=== PATIENT | female | born 1960 | race Caucasian/White ===

== ENCOUNTER 2021-03-31 12:20 | Inpatient (IN) | payer MEDICARE, MEDICAID, SELFPAY ==
[2021-03-31] VITALS (11 sets, daily range): BP systolic 104–202; BP diastolic 73–113; PULSE 46–110; RESP 12–18; TEMP 36.7–36.9; O2SAT 96–100; BMI 43.9; BMI 42.4
--- NOTE | 2021-03-31 12:21 | EKG12_ITS ---
Test Reason : STROKE TEAM Blood Pressure : / mmHG Vent. Rate : 047 BPM Atrial Rate : 047 BPM P-R Int : 168 ms QRS Dur : 092 ms QT Int : 494 ms P-R-T Axes : 028 -15 013 degrees QTc Int : 437 ms Sinus bradycardia Voltage criteria for left ventricular hypertrophy Abnormal ECG Confirmed by KRISTOPHER GRAHAM, VALENTINA ([id number]), editor department YANA ESTRELLA ([id number]) on 04/03/2021 9:27:55 AM Referred By: JACOB Confirmed By:VALENTINA SUMMERS MD
--- NOTE | 2021-03-31 12:21 | CT_ITS ---
STUDY: CT HEAD STROKE PROTOCOL W/O CONTRAST INJECTION REASON FOR EXAM: Female, 60 years old. Neuro deficit, acute, stroke suspected RADIATION DOSAGE (If Supplied By Facility): CTDIvol = ( ) mGy, DLP = ( ) mGycm TECHNIQUE: Transaxial CT imaging of the brain was performed without administration of intravenous contrast material. Individualized dose optimization techniques were used for this CT. COMPARISON: No relevant priors. FINDINGS: Normal soft tissue structures. Normal calvarium. Normal size ventricles and extra-axial spaces for the patient''s age. Normal white matter tracts of the cerebral hemispheres. Normal basal ganglia and thalami. Normal brainstem. Normal cerebellum. There is no intracranial hemorrhage. There are no findings of an acute ischemic infarction. Normal visualized paranasal sinuses. ASPECT score: CT/STROKE Brain/Head without Cont IMPRESSION: Normal unenhanced CT scan of the brain. N.B. : The above information has been verbally conveyed by Eusebio Vasquez MD to MD evans, on 03/31/2021 12:37:32 (ET). Electronically Signed: Eusebio Vasquez MD at 12:36 EDT Tel , Service support ,
--- NOTE | 2021-03-31 12:22 | CT_ITS ---
STUDY: CTA HEAD AND NECK WITH CONTRAST REASON FOR EXAM: Female, 60 years old. Neuro deficit, acute, stroke suspected RADIATION DOSAGE (If Supplied By Facility): CTDIvol = ( 19.76 ) mGy, DLP = ( 617.89 ) mGycm TECHNIQUE: CT angiography was performed with a multi-detector CT scanner. Data acquisition was obtained from the skull base through the vertex following intravenous administration of IV 100mL Isovue-370. MIP images were reconstructed from the axial data set. Post-processing of the angiographic images was performed, with multiplanar reformation and 3D reconstruction. Individualized dose optimization techniques were used for this CT. COMPARISON: No relevant priors. FINDINGS: Normal bilateral petrous carotid arteries. There is calcified plaque formation of the right cavernous carotid artery, without a cross-sectional luminal stenosis. There is calcified plaque formation of the left cavernous carotid artery, without a cross-sectional luminal stenosis. Normal right A1 segments of the anterior cerebral artery. Normal left A1 segments of the anterior cerebral artery. Normal intact anterior communicating artery (ACOM). Normal bilateral A2 segments of the anterior cerebral arteries. Normal right M1 and M2 segments of the middle cerebral arteries, with a normal M1 bifurcation. Normal left M1 and M2 segments of the middle cerebral arteries, with a normal M1 bifurcation. Normal right posterior communicating artery (PCOM). Normal left posterior communicating artery (PCOM). Normal bilateral vertebral arteries. Normal basilar artery with a normal basilar bifurcation. The visualized bilateral superior cerebellar (SCA) arteries are normal. Normal bilateral P1, P2 and visualized P3 segments of the posterior cerebral arteries. There is no demonstrated aneurysm of the [place]. There is no demonstrated abnormality of the visualized brain. AORTIC ARCH: Normal visualized aortic arch. Normal origins of the brachiocephalic, left common carotid, and left subclavian arteries. RIGHT CAROTID ARTERIES: Normal right common carotid artery (CCA). There is mild atherosclerotic plaque formation with minimal narrowing of the right carotid bulb. Normal origin of the right internal carotid (ICA) artery without a hemodynamically significant stenosis. Normal visualized cervical portion of the right internal carotid artery. Normal origin of the right external carotid artery (ECA). LEFT CAROTID ARTERIES: Normal left common carotid artery (CCA). Normal left common carotid bulb. Normal origin of the left internal carotid (ICA) artery without a hemodynamically significant stenosis. Normal visualized cervical portion of the left internal carotid artery. Normal origin of the left external carotid artery (ECA). VERTEBRAL ARTERIES: Normal bilateral vertebral arteries. CT/STROKE CTA Head AND Neck W/Con IMPRESSION: Normal CTA Head and neck with contrast. N.B. : The above information has been verbally conveyed by Eusebio Vasquez MD to Lamont Batista MD, , on 03/31/2021 14:24:45 (ET). Electronically Signed: Eusebio Vasquez MD at 13:13 EDT Tel , Service support ,
--- NOTE | 2021-03-31 12:28 | EX.ED.DYSGE1 ---
HPI History of Present Illness Chief Complaint: Neuro S/Sx Informant: patient Onset/Context/Timing Onset: Today Context: Gradual Onset Timing: Continuous Current Severity: Moderate Maximum Severity: Moderate Narrative Narrative: The patient is a 60-year-old female medical history significant for hypertension and fibromyalgia who presents to the emergency department with strokelike symptoms. Patient states that about 11 AM today, she began to have tingling in her right arm. She states that she would try to move it, I would feel clumsy. She states the tingling also went to her face and leg. She states she is never had a thing like this before. So involving the right side of the body. She denies headache. She denies visual change. She denies any trouble speaking or swallowing. She has no history of coronary vascular disease. She has no history of stroke or TIA. Prior similar symptoms: No Recent Illness/Hospitalization: No [facility] Medical History (Updated 03/31/21 @ 12:42 by Chacho Casper) Hypertension Home Medications gabapentin 1,200 mg QHS 03/31/21 [History Last Taken Unknown] hydrochlorothiazide 12.5 mg DAILY 03/31/21 [History Last Taken Unknown] ibuprofen [IBU] 800 mg BID 03/31/21 [History Last Taken Unknown] levothyroxine 50 mcg DAILY 03/31/21 [History Last Taken Unknown] tramadol 50 mg QHS 03/31/21 [History Last Taken Unknown] Allergy/AdvReac Type Severity Reaction Status Date / Time meperidine [From Demerol] Allergy PT UNSURE Verified 03/31/21 12:36 OF REACTION Social History Smoking Status: Never smoker ROS ROS ED Constitutional Constitutional ED: Denies chills or fever(s) Eyes Eyes: Denies blurry vision or change in vision ENT ENT ED: Denies ear pain or sore throat Cardiovascular Cardiovascular: Denies chest pain or palpitations Respiratory/Chest Respiratory/Chest: Denies cough, dyspnea or dyspnea on exertion Gastrointestinal Gastrointestinal: Denies abdominal pain, nausea or vomiting Genitourinary Genitourinary ED: Denies dysuria or urinary frequency Musculoskeletal Musculoskeletal: Denies arthralgias or myalgias Integumentary Denies rash Neurologic Neurologic: Reports paresthesias and weakness; Denies headache(s) Psychiatric Psychiatric: Denies anxiety or depression Endocrine Endocrinology: Denies polydipsia or polyuria Allergic/Immunologic Allergic/Immunologic ED: Denies urticaria EXAM Physical Exam Const Vital Signs: 03/31/21 12:21 03/31/21 12:27 03/31/21 12:51 Temperature 98.2 F Temperature Source Temporal Pulse Rate 51 L 57 L Respiratory Rate 16 14 Blood Pressure 165/92 H Blood Pressure Mean 116 Pulse Ox 96 98 Oxygen Delivery Method Room Air Room Air Room Air Positive well nourished and well developed General Appearance ED: well developed HEENT Reports normocephalic, head/scalp atraumatic and moist mucous membranes Eyes PERRL and EOMs intact bilaterally Neck no lymphadenopathy and supple General: Negative for tenderness Chest Wall inspection of chest normal Resp normal respiratory effort and clear to auscultation bilaterally Cardio regular rate, regular rhythm and no murmurs GI normal to inspection, nondistended, normoactive bowel sounds Palpation: Negative for tender, guarding or rebound tenderness present Back/Spine no CVA tenderness Cervical Spine: Negative for cervical spine tenderness Thoracic Spine / Upper Back: Negative for thoracic spinal tenderness Extremity normal to inspection General Extremety ED: Negative for tenderness Neuro oriented x3 and CN's II-XII intact bilaterally Neuro Narrative: Patient does have very slight weakness of the right arm against gravity. She can hold, but the arm does wobble. She also has some mild weakness of the right leg against gravity. There is sensation difference between the right and left side, but no inattention. Her NIH is 3. Sensorium / Orientation: alert Psych mental status grossly normal Skin no rashes or lesions noted, no wounds and skin turgor normal MDM MDM MDM Narrative Medical decision making narrative: The patient initially had an NIH of 3, but her symptoms are rapidly improving. Her repeat NIH is only 1 for the sensory change. The patient was seen in conjunction with [facility] neurology. Noncontrast head CT was negative. I did not recommend TPA and I do agree with this. However, given the patient's focal symptoms I do feel that she would benefit from a TIA work-up. Patient was discussed with the hospitalist and will be admitted. Impression 1. Right-sided paresthesias Lab Data Attestation: I reviewed the patient's lab results. Labs: Laboratory Results - last 24 hr 03/31/21 03/31/21 03/31/21 12:30 12:30 12:30 WBC 7.6 RBC 4.85 Hgb 15.0 Hct 45.3 MCV 93.4 MCH 30.9 MCHC 33.1 RDW Std Deviation 44.5 H RDW Coeff of Judi 13.0 Plt Count 186 MPV 11.3 Immature Gran % (Auto) 0.300 Neut % (Auto) 58.8 Lymph % (Auto) 27.7 [place] % (Auto) 9.5 Eos % (Auto) 3.2 Baso % (Auto) 0.5 Absolute Neuts (auto) 4.5 Absolute Lymphs (auto) 2.11 Nucleated RBC % 0 PT 12.7 INR 1.0 APTT 25.6 Sodium 142 Potassium 3.8 Chloride 104 Carbon Dioxide 32.0 Anion Gap 6 BUN 13 Creatinine 0.91 Estim Creat Clear Calc 58.42 Est GFR (MDRD) Af Amer 81 Est GFR (MDRD) Non-Af 67 BUN/Creatinine Ratio 14.3 Glucose 91 Calcium 8.8 Troponin I < 0.015 Discharge Plan Triage Chief Complaint: Neuro S/Sx ED Provider: Lamont Batista Dx/Rx/DC Orders Prescriptions: No Action ibuprofen [IBU] 800 mg tablet 800 mg BID RF: 0 tramadol 50 mg Tablet 50 mg QHS RF: 0 levothyroxine 50 mcg tablet 50 mcg DAILY RF: 0 hydrochlorothiazide 12.5 mg capsule 12.5 mg DAILY RF: 0 gabapentin 300 mg capsule 1,200 mg QHS RF: 0 Primary Care Provider: NOT,DEFINED
[2021-03-31 12:37] LABS: Absolute Lymphocyte Count 2.11 X10^3/uL (0.83-4.51); Absolute Neutrophil Count 4.5 X10^3/uL (2.0-7.7); Basophil# 0.04 X10^3/uL; Basophil% 0.5 % (0-1); Eosinophil# 0.24 X10^3/uL; Eosinophils% 3.2 % (0-5); Hematocrit 45.3 % (37-47); Lymphocyte # 2.11 X10^3/ul (0.83-4.51); Lymphocyte % 27.7 % (19-41); Mean Corp Hgb Conc 33.1 g/dL (32-36); Mean Corpuscular Hgb 30.9 pg (27.0-32.0); Mean Corpuscular Volume 93.4 fL (81-99); Mean Platelet Vol. 11.3 fl (6.2-12.0); Monocyte# 0.72 X10^3/uL; Monocyte% 9.5 % (0-10); NRBC Flagged by Analyzer 0 % (0-5); Neutrophil # 4.48 X10^3/uL (2.7-7.7); Neutrophil % 58.8 % (47-70); Platelet Count 186 K/mm3 (150-450); RBC Distribution Width SD 44.5 fl (35.1-43.9); Red Blood Count 4.85 M/mm3 (4.2-5.4); White Blood Count 7.6 K/mm3 (4.4-11.0)
[2021-03-31 12:45] LABS: Prothrombin Time (Protime)PT. 12.7 SECONDS (11.7-14.9)
[2021-03-31 12:46] LABS: Partial Thromboplast Time 25.6 Seconds (24.1-36.2)
[2021-03-31 12:55] LABS: Anion Gap 6 (5-15); BUN 13 mg/dL (7-18); BUN/Creat Ratio 14.3 RATIO (10-20); Calcium,Total 8.8 mg/dL (8.5-10.1); Chloride 104 mmol/L (98-107); Creatinine, Serum 0.91 mg/dL (0.55-1.02); EST Glomerular Filtration Rate 67 mL/min (>60); Est Glom Filt Rate - Afr Amer 81 mL/min (>60); Estimated Creatinine Clearance 58.42 ml/min; Glucose 91 mg/dL (74-106); Potassium 3.8 mmol/L (3.5-5.1); Sodium Level 142 mmol/L (136-145)
--- NOTE | 2021-03-31 13:04 | RAD_ITS ---
STUDY: X-RAY CHEST REASON FOR EXAM: Female, 60 years old. Neuro deficit, acute, stroke suspected TECHNIQUE: Single AP portable view of the chest. COMPARISON: None. FINDINGS: The lungs are clear and expanded. There is no demonstrated pleural abnormality. Normal size heart. Normal mediastinum and vinod. Normal visualized pulmonary arteries. Normal visualized aortic arch and descending thoracic aorta. Normal visualized thoracic spine. Normal visualized ribs, clavicles, and shoulders. There is no demonstrated abnormality of the visualized soft tissue structures of the upper abdomen. RAD/Chest 1 View IMPRESSION: Normal x-ray examination of the chest. Electronically Signed: Eusebio Vasquez MD at 13:14 EDT Tel , Service support ,
--- NOTE | 2021-03-31 13:05 | ED.RN ---
Dr Batista states to discontinue NIH
--- NOTE | 2021-03-31 13:07 | NURSING ---
NO OLD EKGS
--- NOTE | 2021-03-31 13:09 | NURSING ---
DR ADRYAN JAMES
--- NOTE | 2021-03-31 13:14 | NURSING ---
PCU OBS ADRYAN RT SIDED PARESTHESIAS
--- NOTE | 2021-03-31 13:25 | MRI_ITS ---
We are attempting to reach an attending provider to discuss findings. An addendum with communication details will be sent when the communication is complete. STUDY: MRI BRAIN WITHOUT CONTRAST REASON FOR EXAM: Female, 60 years old. right sided numbness TECHNIQUE: Standardized multiplanar fat and water weighted pulse sequences were obtained. COMPARISON: CT 03/31/2021 FINDINGS: Normal size of the ventricles and extra-axial spaces for the patient''s age. Normal white matter tracts of the supratentorial brain. Punctate hyperintensity of the left thalamus demonstrates restricted diffusion consistent with an acute infarct. Normal T2* images of the brain without demonstrated susceptibility artifact. There is no demonstrated hemosiderin stain. Normal bilateral basal ganglia. Normal thalami. There is no extra-axial fluid accumulation. Normal flow voids within the major intracranial circulation suggesting patency by spin echo criteria. Normal sella turcica, pituitary gland, infundibular stalk, optic chiasm and hypothalamus. Normal tectal plate and pineal gland. Normal midbrain, tessy and medulla. Normal cerebellum. Normal basal cisterns. Normal bilateral temporal bones. Normal bilateral internal auditory canals. No demonstrated orbital abnormality, within the constraints of a routine brain study. Normal visualized paranasal sinuses. Normal calvarium and skull base. Normal visualized soft tissue structures. Normal visualized upper cervical spine. MRI/Brain without Contrast IMPRESSION: Acute punctate infarct left thalamus. Electronically Signed: Eusebio Vasquez MD at 10:57 EDT Tel , Service support ,
[2021-03-31 13:26] LABS: Bedside Glucose 92 mg/dL (70-110)
--- NOTE | 2021-03-31 13:27 | ECHOCS_ITS ---
Reason For Study: TIA/CVA Procedure This was a 2D Doppler, Color Flow transthoracic echocardiogram. Technically difficult due to patient body habitus. Contrast injection and bubble study performed. Exam performed portable in patient room. Left Ventricle Normal LV size. Mild concentric left ventricular hypertrophy. Left ventricular systolic function is normal. The estimated ejection fraction is 65 %. Stage 1 diastolic dysfunction. Right Ventricle Normal RV size. Normal systolic function. Atria Normal left atrium. Normal right atrium. Bubble contrast study negative for right to left interatrial shunt. Mitral Valve Normal mitral valve. Tricuspid Valve Normal tricuspid valve. Aortic Valve Trisinus/trileaflet aortic valve. Pulmonic Valve Normal pulmonic valve. Great Vessels Normal aortic root. The pulmonary artery is normal size. Normal inferior vena cava. Pericardium/Pleural No pericardial effusion. Medication Diluted definity 4ml given slow IV push to enhance endocardial definition. Performed a rapid injection of agitated mix of 9 cc saline and 1cc air to assess for atrial septal defect. MMode/2D Measurements & Calculations LVIDd: 3.6 cm IVSd: 1.5 cm Ao root diam: 3.6 cm LVIDs: 2.1 cm LVPWd: 1.2 cm LA dimension: 3.7 cm FS: 41.0 % LAV(MOD-bp): 37.9 ml LA A4 area: 15.4 cm2 LAV(MOD-bp) Indexed: 17.0 ml/m2 LAV(MOD-sp2): 40.6 ml LAV(MOD-sp4): 35.5 ml Time Measurements MV dec time: 0.37 sec Doppler Measurements & Calculations MV E max timothy: 78.9 cm/sec Lat Peak E' Timothy: 8.5 cm/sec Med Peak E' Timothy: 4.7 cm/sec MV A max timothy: 106.0 cm/sec E/E' lat: 9.3 E/E' med: 16.7 MV E/A: 0.74 MV V2 max: 108.1 cm/sec MV P1/2t max timothy: 80.2 cm/sec Ao V2 max: 122.0 cm/sec MV max P.7 mmHg MV P1/2t: 83.0 msec Ao max P.0 mmHg MV V2 mean: 53.8 cm/sec MV dec slope: 283.0 cm/sec2 MV mean P.4 mmHg MV V2 VTI: 25.0 cm MVA(P1/2t): 2.6 cm2 LV V1 max: 108.9 cm/sec PA V2 max: 105.0 cm/sec LV V1 max P.7 mmHg ECHO/Echo Complete W/ Contrast Interpretation Summary Normal LV size. Mild concentric left ventricular hypertrophy. Left ventricular systolic function is normal. The estimated ejection fraction is 65 %. Stage 1 diastolic dysfunction. Bubble contrast study negative for right to left interatrial shunt. Contrast injection was performed. Ordering Physician: Dalton Reed Referring Physician: Trace Yi Performed By: Lukasz Samano RCS
--- NOTE | 2021-03-31 13:31 | HP.PCM.HOS_ITS ---
HPI - General HPI Narrative MIREYA WARE, is a 60 F who presents right sided numbness today. Started in Right arm then progressed to right face and right arm. She endorses weakness in right arm. Sx improved, but not completely resolved. No prior similar symptoms. [facility] Medical History (Updated 03/31/21 @ 13:[address] Dalton Reed DO) Fibromyalgia Hypertension Osteoarthritis Psoriatic arthritis Rheumatoid arthritis Home Medications gabapentin 1,200 mg QHS 03/31/21 [History Last Taken Unknown] hydrochlorothiazide 12.5 mg DAILY 03/31/21 [History Last Taken Unknown] ibuprofen [IBU] 800 mg BID 03/31/21 [History Last Taken Unknown] levothyroxine 50 mcg DAILY 03/31/21 [History Last Taken Unknown] tramadol 50 mg QHS 03/31/21 [History Last Taken Unknown] Allergy/AdvReac Type Severity Reaction Status Date / Time meperidine [From Demerol] Allergy PT UNSURE Verified 03/31/21 12:36 OF REACTION Family History (Updated 03/31/21 @ 13:[address] Dalton Reed DO) Other CVA (cerebral vascular accident) Social History Smoking Status: Never smoker ROS ROS Narrative All review of systems were negative except as mentioned above in the history of present illness and the other review of systems. Vital Signs Vital Signs Vital Signs: 03/31/21 12:21 03/31/21 12:27 03/31/21 12:51 Temperature 36.8 C Temperature Source Temporal Pulse Rate 51 L 57 L Respiratory Rate 16 14 Blood Pressure 165/92 H Blood Pressure Mean 116 Pulse Ox 96 98 Oxygen Delivery Method Room Air Room Air Room Air Physical Exam Const alert, oriented x3 and no apparent distress General Appearance: cooperative HEENT normocephalic, oropharynx normal and dentition normal Eyes PERRL and EOMs intact bilaterally Neck no lymphadenopathy Resp normal respiratory effort and clear to auscultation bilaterally Cardio regular rate, regular rhythm, S1 normal heart sound and S2 normal heart sound GI normal to inspection, nondistended, normoactive bowel sounds, non-tender and non-distended Extremity normal to inspection and no clubbing, cyanosis or edema Skin no rashes or lesions noted Neuro oriented x3, CN's II-XII intact bilaterally, moves all extremities and no focal motor deficits Sensorium / Orientation: awake, alert and oriented to person Coordination / Balance: [id number] test normal Speech: speech normal Motor Exam: strength 5/5 throughout Lab / Micro Data Attestation: I reviewed the patient's lab results. Result Diagrams: 03/31/21 12:30 03/31/21 12:30 Labs: Laboratory Results - last 24 hr 03/31/21 03/31/21 03/31/21 12:23 12:30 12:30 WBC 7.6 RBC 4.85 Hgb 15.0 Hct 45.3 MCV 93.4 MCH 30.9 MCHC 33.1 RDW Std Deviation 44.5 H RDW Coeff of Judi 13.0 Plt Count 186 MPV 11.3 Immature Gran % (Auto) 0.300 Neut % (Auto) 58.8 Lymph % (Auto) 27.7 [place] % (Auto) 9.5 Eos % (Auto) 3.2 Baso % (Auto) 0.5 Absolute Neuts (auto) 4.5 Absolute Lymphs (auto) 2.11 Nucleated RBC % 0 PT 12.7 INR 1.0 APTT 25.6 Sodium Potassium Chloride Carbon Dioxide Anion Gap BUN Creatinine Estim Creat Clear Calc Est GFR (MDRD) Af Amer Est GFR (MDRD) Non-Af BUN/Creatinine Ratio Glucose Calcium Troponin I POC Glucose 92 03/31/21 12:30 WBC RBC Hgb Hct MCV MCH MCHC RDW Std Deviation RDW Coeff of Judi Plt Count MPV Immature Gran % (Auto) Neut % (Auto) Lymph % (Auto) [place] % (Auto) Eos % (Auto) Baso % (Auto) Absolute Neuts (auto) Absolute Lymphs (auto) Nucleated RBC % PT INR APTT Sodium 142 Potassium 3.8 Chloride 104 Carbon Dioxide 32.0 Anion Gap 6 BUN 13 Creatinine 0.91 Estim Creat Clear Calc 58.42 Est GFR (MDRD) Af Amer 81 Est GFR (MDRD) Non-Af 67 BUN/Creatinine Ratio 14.3 Glucose 91 Calcium 8.8 Troponin I < 0.015 POC Glucose Radiology Impression Head/Neck CTA 03/31/21 12:22 IMPRESSION: Normal CTA Head and neck with contrast. Electronically Signed: Eusebio Vasquez MD at 13:13 EDT Tel , Service support , Chest X-Ray 03/31/21 13:04 IMPRESSION: Normal x-ray examination of the chest. Electronically Signed: Eusebio Vasquez MD at 13:14 EDT Tel , Service support , Assessment & Plan Assessment/Plan (1) Right sided numbness: PLAN: 1. Right-sided numbness * Concern is for stroke or TIA * Plan is for an MRI of the brain, to echocardiogram and neurology consultation based on the results of the studies. * Aspirin 2. Hypertensive urgency * Could be related with possible TIA or stroke with increased cerebral perfusion pressure * As needed meds and monitor * Continue HCTZ 3. Morbid obesity * Complicates overall care but will need further management as outpatient 4. Arthritis * Patient claims to have osteo-, rheumatoid and psoriatic arthritis * I doubt that she has all 3 and told her as much. * Recommend patient follow-up with rheumatology to further delineate what type of arthritis she does have and what treatments may or may not be needed. 6. VTE prophylaxis moderate risk. Low weight molecular heparin Visit Charges Inpatient E&M: 97877 Init Hosp L3
--- NOTE | 2021-03-31 13:40 | ED.RN ---
Orders to not give the labatelol per Dr Batista due to patient low HR.
--- NOTE | 2021-03-31 13:43 | ED.RN ---
After Dr Reed leaves room, patient now requesting to leave AMA. Dr Batista notified and is at bedside talking with patient.
[2021-03-31] MEDS: hydrALAZINE 20 MG/ML Vial 10 MG IV (14:09)
--- NOTE | 2021-03-31 16:09 | CM.ED ---
SW Note Referral Source: Stroke Alert Reason for Referral: Stroke Alert SW responded to patient's room and met with . He recalled his concern about patient this morning as her face got numb. He also reports they live in [place] and have daughter that resides in [place]. SW explained that patient is in CT and process of communicating with [facility] neurologist. SW asked if patient's needed anything additionally and he said no. Emotional support provided. SW came back to patient's room and patient was in the room with her . SW checked in with both patient and and they voiced no issues or needs. SW will remain available as needed. Joann LIRIANO
[2021-03-31] MEDS: Aspirin 325 MG Tablet PO (17:18)
[2021-03-31] MEDS: traMADol 50 MG Tablet PO (19:20)
[2021-03-31] MEDS: Gabapentin 400 MG Capsule PO (19:21)
[2021-03-31] MEDS: Acetaminophen 500 MG Tablet 1000 MG PO (21:09)
[2021-03-31] MEDS: GABAPENTIN 800 MG TABLET PO (21:17)
[2021-04-01] VITALS (12 sets, daily range): BP systolic 109–151; BP diastolic 66–103; PULSE 68–113; RESP 14–20; TEMP 36.3–37.3; O2SAT 96–98; BMI 42.4
[2021-04-01] MEDS: Acetaminophen 500 MG Tablet 1000 MG PO ×3 (06:32→22:05)
[2021-04-01] MEDS: 0.9% Saline Lock 10 ML Syringe IV (06:33)
[2021-04-01 07:05] LABS: Cholesterol 210 mg/dL (200); High Density Lipoprotein 85 mg/dL; Triglycerides 84 mg/dL; Very Low Density Lipoprotein 17 mg/dL (5-40)
[2021-04-01] MEDS: traMADol 50 MG Tablet PO ×2 (07:43→18:08)
[2021-04-01] MEDS: Aspirin 81 MG TAB.CHEW PO (07:44)
[2021-04-01] MEDS: hydroCHLOROthiazide 12.5mg 12.5 MG PO (10:34)
--- NOTE | 2021-04-01 11:46 | TELEMED_ITS ---
[facility] has confirmed receipt of a request for visit. This document confirms receipt of the order initiating the consult. To find the results of the consultation, please view the patient's reports for the scanned Telemed Consult.
--- NOTE | 2021-04-01 13:56 | PN.HOSP_ITS ---
Subjective Subjective still with right sided numbness, but slightly better. Objective Data Objective Data Vital Signs: Vital Signs Temp Pulse Resp BP Pulse Ox 37.0 C 72 17 151/93 H 97 04/01/21 10:26 04/01/21 10:44 04/01/21 10:26 04/01/21 10:04/01/21 10:26 Oxygen Delivery Method Room Air Weight: 115.7 kg Body Mass Index (BMI) 42.4 Intake & Output: Intake and Output for Last 24 Hours 03/30/21 03/31/21 04/01/21 23:59 23:59 23:59 Intake Total 1100 / 1100 770 / 770 Balance 1100 / 1100 770 / 770 Lab / Micro Data Attestation: I reviewed the patient's lab results. Result Diagrams: 03/31/21 12:30 03/31/21 12:30 Labs: Laboratory Results - last 24 hr 03/31/21 04/01/21 15:46 06:16 Troponin I < 0.015 Triglycerides 84 Cholesterol 210 H LDL Cholesterol 108 VLDL Cholesterol 17 HDL Cholesterol 85 Radiography Diagnostic Testing: Radiology Impression Head/Neck CTA 03/31/21 12:22 IMPRESSION: Normal CTA Head and neck with contrast. Electronically Signed: Eusebio Vasquez MD at 13:13 EDT Tel , Service support , ADDENDUM: 03/31/21 1431 IMPRESSION: Normal CTA Head and neck with contrast. N.B. : The above information has been verbally conveyed by Eusebio Vasquez MD to Lamont Batista MD, , on 03/31/2021 14:24:45 (ET). Electronically Signed: Eusebio Vasquez MD at 13:13 EDT Tel , Service support , Brain MRI 03/31/21 13:25 IMPRESSION: Acute punctate infarct left thalamus. Electronically Signed: Eusebio Vasquez MD at 10:57 EDT Tel , Service support , ADDENDUM: 04/01/21 1115 IMPRESSION: Acute punctate infarct left thalamus. N.B. : The above information has been verbally conveyed by Eusebio Vasquez MD to Luisa Smith RN, on 04/01/2021 11:08:16 (ET). Electronically Signed: Eusebio Vasquez MD at 10:57 EDT Tel , Service support , Physical Exam Const alert and oriented x3 HEENT Head and Scalp: normocephalic Eyes PERRL Extremity normal to inspection Skin no rashes or lesions noted Neuro Neuro Narrative: diminished sensation on right arm compared to left. Sensorium / Orientation: awake and alert Psych affect normal Assessment & Plan Assessment/Plan (1) Cerebrovascular accident (CVA) of left thalamus: (2) Right sided numbness: PLAN: 1. acute right thalamic CVA * symptoms improving * echo for 04/02 * DW neurology. He feels that this is small vessel occlusion. * Recommends ASA, HIS, and clopidogrel (load 300, then 75 daily). Continue DAPT for 21 days, then ASA daily afterwards. Follow up with neurology 2. Hypertensive urgency * Likely exacerbated by CVA * Improving * As needed meds and monitor * Continue HCTZ 3. Morbid obesity * Complicates overall care but will need further management as outpatient 4. Arthritis * Patient claims to have osteo-, rheumatoid and psoriatic arthritis * I doubt that she has all 3 and told her as much. * Recommend patient follow-up with rheumatology to further delineate what type of arthritis she does have and what treatments may or may not be needed. 5. VTE prophylaxis moderate risk. Low weight molecular heparin Visit Charges Inpatient E&M: 25070 Subs Hosp L3
[2021-04-01] MEDS: Clopidogrel Bisulfate 300 MG Tablet PO (14:32)
[2021-04-01] MEDS: Gabapentin 400 MG Capsule PO (18:09)
--- NOTE | 2021-04-01 18:23 | EKG12_ITS ---
Test Reason : Blood Pressure : / mmHG Vent. Rate : 112 BPM Atrial Rate : 112 BPM P-R Int : 176 ms QRS Dur : 086 ms QT Int : 334 ms P-R-T Axes : 017 -13 -19 degrees QTc Int : 455 ms Sinus tachycardia Left ventricular hypertrophy with repolarization abnormality Abnormal ECG When compared with ECG of 31-MAR-2021 13:02, MANUAL COMPARISON REQUIRED, DATA IS UNCONFIRMED Confirmed by KRISTOPHER GRAHAM, VALENTINA ([id number]), purchasing expeditor YANA ESTRELLA ([id number]) on 04/03/2021 9:41:30 AM Referred By: ADRYAN Confirmed By:VALENTINA SUMMERS MD
[2021-04-01] MEDS: Atorvastatin Calcium 80 MG Tablet PO (22:05)
[2021-04-01] MEDS: GABAPENTIN 800 MG TABLET PO (22:06)
[2021-04-02] VITALS (7 sets, daily range): BP systolic 104–155; BP diastolic 65–96; PULSE 63–79; RESP 16–18; TEMP 36.4–36.8; O2SAT 96–98; BMI 42.4
[2021-04-02] MEDS: Acetaminophen 500 MG Tablet 1000 MG PO (05:39)
[2021-04-02] MEDS: Levothyroxine 50 MCG Tablet PO (05:39)
[2021-04-02] MEDS: Aspirin 81 MG TAB.CHEW PO (08:12)
[2021-04-02] MEDS: traMADol 50 MG Tablet PO (08:12)
[2021-04-02] MEDS: hydroCHLOROthiazide 12.5mg 12.5 MG PO (08:13)
[2021-04-02] MEDS: Clopidogrel Bisulfate 75 MG Tablet PO (08:13)
--- NOTE | 2021-04-02 10:20 | CASEMGMT ---
[facility] Assessment: Face to Face with pt for initial transition planning/care coordination assessment. RN ESTRELLA introduced self and role at [facility], pt voices understanding and consents to assessment. Pt is A/O x4 and answers all questions appropriately at this time. Pt sitting up in bed in no distress. Care providers, pharmacy, and demographics verified/updated. Admitting Dx: right sided weakness PCP: [facility] Specialists: Pt denies having any specialists. Preferred Pharmacy: [facility] Insurance: [employer], [employer] Prescription Benefit: yes LW/HPOA: Pt denies having a LW/DPOA. LNOK: Chad Flaherty, Living Arrangements: Pt lives with in a second story apartment with 12 steps to enter with a rail. Pt states she is I in ADL's and denies concerns at home other than the steps. She states her is looking at a house today to potentially move to. Transportation: Pt drives self denies concerns with transportation. DME/HHC/SNF: Pt has a cane at home. Denies any previous SNF stays or HHC. Pt states no concerns with going home at time of dc. Pt states no further concerns/needs. CM to follow. Advised pt to ask CM if any further question/concerns/needs arise, voices understanding. Pt Goal: Home Plan: Home with family support.
--- NOTE | 2021-04-02 11:16 | CASEMGMT ---
SW completed PHQ-9 w/pt, no indication of depression at this time. Pt would like to be on the stroke support group mailing list. GHULAM Grubbs
--- NOTE | 2021-04-02 11:38 | PCM.DC ---
Discharge Instructions Diet Discharge Diet: Low fat / Low cholesterol Activity Discharge Activity: Return to Normal Activity Follow Up Care Please Follow Up With: Trace Yi Test Results: Test results from this visit will be discussed in further detail at your follow-up appointment, if applicable. Discharge Plan Admission Admit Date/Time: 03/31/21 13:28 Primary Reason for Your Visit: ACUTE CVA Attending Provider: Troy Cope Primary Care Provider: Trace Yi Discharge Orders/Prescriptions Prescriptions: New atorvastatin 80 mg Tablet 80 mg PO QHS 90 Days Qty: 90 RF: 0 clopidogrel 75 mg Tablet 75 mg PO DAILY 21 Days Qty: 21 RF: 0 aspirin 81 mg tablet,chewable 81 mg PO DAILY Qty: 90 RF: 0 Continued ibuprofen [IBU] 800 mg tablet 800 mg BID RF: 0 tramadol 50 mg Tablet 50 mg BID RF: 0 levothyroxine 50 mcg tablet 50 mcg DAILY RF: 0 hydrochlorothiazide 12.5 mg capsule 12.5 mg DAILY RF: 0 gabapentin 300 mg capsule 800 mg QHS RF: 0 gabapentin 400 mg Capsule 400 mg PO 1800 RF: 0 Referrals / Follow Up: Trace Yi DO [Primary Care Provider] - In 1 Week Disposition Disposition (needs filled in before D/C Order can be placed): Home, self care
--- NOTE | 2021-04-02 11:41 | PCM.DC.SUM ---
Providers Date of Admission: 03/31/21 Primary Care Physician: Dr. Trace Yi, DO Reason For Visit: RIGHT SIDED WEAKNESS Diagnosis Discharge Diagnosis (1) Cerebrovascular accident (CVA) of left thalamus: Status: Acute Code(s): I63.9 - Cerebral infarction, unspecified (2) Right sided numbness: Status: Acute Code(s): R20.0 - Anesthesia of skin Medications at Discharge Home Medications gabapentin 400 mg PO 1800 03/31/21 gabapentin 800 mg QHS 03/31/21 hydrochlorothiazide 12.5 mg DAILY 03/31/21 ibuprofen [IBU] 800 mg BID 03/31/21 levothyroxine 50 mcg DAILY 03/31/21 tramadol 50 mg BID 03/31/21 aspirin 81 mg PO DAILY #90 tab 04/02/21 atorvastatin 80 mg PO QHS 90 Days #90 tab 04/02/21 clopidogrel 75 mg PO DAILY 21 Days #21 tab 04/02/21 Hospital Course Summary of Care Provided Minutes Spent on Discharge: 35 Hospital Course: Patient is a 60-year-old lady who presented with right-sided numbness 1. Acute right thalamic CVA ?Patient presented with right-sided numbness CVA confirmed on imaging studies. Patient was managed with PT OT DVT prophylaxis as well as dual antiplatelet therapy. Patient was also seen in consultation by [facility] neurology noted recommendations reviewed 2. Essential hypertension ?Patient blood pressure levels were within acceptable levels 3. Dyslipidemia ?Patient was started on statin therapy on discharge 4. Obesity with BMI of 42.4 ?Weight loss advised Physical Exam Narrative GENERAL: cooperative HEENT: Atraumatic; EYES; Anicteric, Normal Conjunctiva NECK; supple, normal thyroid, RESPIRATORY: Diminished to auscultation NEURO: Awake; no lateralizing signs. SKIN: No Rash PSYCH; Flat affect ABG / Lab / Microbiology Data Result Diagrams: 03/31/21 12:30 03/31/21 12:30 Radiography Diagnostic Testing: Radiology Impression Brain CT 03/31/21 12:21 IMPRESSION: Normal unenhanced CT scan of the brain. N.B. : The above information has been verbally conveyed by Eusebio Vasquez MD to MD evans, on 03/31/2021 12:37:32 (ET). Electronically Signed: Eusebio Vasquez MD at 12:36 EDT Tel , Service support , Head/Neck CTA 03/31/21 12:22 IMPRESSION: Normal CTA Head and neck with contrast. N.B. : The above information has been verbally conveyed by Eusebio Vasquez MD to Lamont Batista MD, MD, on 03/31/2021 14:24:45 (ET). Electronically Signed: Eusebio Vasquez MD at 13:13 EDT Tel , Service support , D/C Instructions Discharge Diet: Low fat / Low cholesterol Discharge Activity: Return to Normal Activity Please Follow Up With: Trace Yi Meaningful Use Info Meaningful Use Diagnoses (Choose all that apply): Ischemic CVA CVA Therapy Assessed for PT,OT and/or ST?: Yes Ischemic Stroke Antithrombotic order at d/c?: Yes Dx of Atrial fib/flutter?: No Statins at discharge?: Yes Primary Dx Acute Ischemic CVA?: Yes IV tPA ordered during stay?: No Reason IV t-PA not ordered: Treatment not Indicated Discharge Plan Admission Admit Date/Time: 03/31/21 13:28 Primary Reason for Your Visit: ACUTE CVA Attending Provider: Troy Cope Primary Care Provider: Trace Yi Discharge Orders/Prescriptions Prescriptions: New atorvastatin 80 mg Tablet 80 mg PO QHS 90 Days Qty: 90 RF: 0 clopidogrel 75 mg Tablet 75 mg PO DAILY 21 Days Qty: 21 RF: 0 aspirin 81 mg tablet,chewable 81 mg PO DAILY Qty: 90 RF: 0 Continued ibuprofen [IBU] 800 mg tablet 800 mg BID RF: 0 tramadol 50 mg Tablet 50 mg BID RF: 0 levothyroxine 50 mcg tablet 50 mcg DAILY RF: 0 hydrochlorothiazide 12.5 mg capsule 12.5 mg DAILY RF: 0 gabapentin 300 mg capsule 800 mg QHS RF: 0 gabapentin 400 mg Capsule 400 mg PO 1800 RF: 0 Referrals / Follow Up: Trace Yi DO [Primary Care Provider] - In 1 Week Disposition Disposition (needs filled in before D/C Order can be placed): Home, self care Visit Charges Inpatient E&M: 34401 Disch Hosp
--- NOTE | 2021-04-02 12:27 | PHA.DC.MC ---
Pharmacy Service has performed discharge medication reconciliation and counseling for this patient. 1. ASPIRIN 81MG PO DAILY 2. ATORVASTATIN 80MG PO QHS 3. CLOPIDOGREL 75MG PO DAILY The patient's discharge medication list was reviewed for discrepancies and discrepancies were resolved. This [facility] spoke to Dr. Cope. Prescriptions for Lipitor and Plavix did not go thru to a pharmacy. He will d/c old orders and re-enter so they will be sent to a pharmacy. Home Medications gabapentin 400 mg PO 1800 03/31/21 gabapentin 800 mg QHS 03/31/21 hydrochlorothiazide 12.5 mg DAILY 03/31/21 ibuprofen [IBU] 800 mg BID 03/31/21 levothyroxine 50 mcg DAILY 03/31/21 tramadol 50 mg BID 03/31/21 aspirin 81 mg PO DAILY #90 tab 04/02/21 atorvastatin [Lipitor] 80 mg PO QHS #90 tab 04/02/21 clopidogrel [Plavix] 75 mg PO DAILY #20 tab 04/02/21 The patient was counseled on the following discharge medications and changes in medications for homegoing were reviewed. The Reason for Use, instructions for use, and potential side effects were reviewed for all new medications. The patient's questions regarding all of their medications were answered. The patient was able to verbally demonstrate an understanding of their discharge medications. Patient was counseled by pharmacy technician program directorBen.
== END 2021-04-02 13:35 | disposition home or self-care (01) | DRG 65 ==
LOC: ED 13:25 → PCU 14:27
PROVIDERS: Emergency Provider Emergency Medicine; PCP Student in an Organized Health Care Education/Training Program; Visit Provider Internal Medicine
DX: I63.9 Cerebral infarction, unspecified (principal); Z68.41 Body mass index [BMI] 40.0-44.9, adult; R20.0 Anesthesia of skin; I10 Essential (primary) hypertension; E78.5 Hyperlipidemia, unspecified; R29.703 NIHSS score 3; I16.0 Hypertensive urgency; E66.01 Morbid (severe) obesity due to excess calories; M06.9 Rheumatoid arthritis, unspecified; L40.50 Arthropathic psoriasis, unspecified
CPT/HCPCS: 36415; 70450; 70496; 70498; 70551; 71045; 80048; 80061; 82962; 84484; 85025; 85610; 85730; 92610; 93005; 93306; 97802; 99283; Q9957; Q9967; A4216; C8929